=== PATIENT | female | born 1995 | race African-American/Black ===

== ENCOUNTER 2018-02-09 17:42 | Emergency (ER) | payer OTHER ==
[~2018-02-09] VITALS: Ht 160 cm; Wt 74.8 kg
[2018-02-09 18:16] LABS: ABSOLUTE EOSINOPHILS 0.1 thou/uL (0.0-0.7); ABSOLUTE LYMPHOCYTES 2.4 thou/uL (0.8-5.3); ABSOLUTE MONOCYTES 0.4 thou/uL (0.0-1.2); ABSOLUTE NEUTROPHILS 7.5 thou/uL (1.6-8.1); BASOPHILS 0.4 %; EOSINOPHILS 0.7 %; HEMATOCRIT 42.9 % (37.0-47.0); HEMOGLOBIN 14.4 gm/dL (12.0-15.0); LYMPHOCYTES 23.1 %; MCH 29.2 pg (26.0-34.0); MCHC 33.5 g/dL (28.0-37.0); MCV 87.2 fL (80.0-100.0); MONOCYTES 3.9 %; MPV 9.5 fl. (7.2-11.1); NUCLEATED RBCS 0 /100WBC; PLATELET COUNT* 229 thou/uL (150-400); POLYS 71.9 %; RBC 4.92 mil/uL (4.20-5.00); RDW-CV 12.9 % (10.5-14.5); WBC 10.5 thou/uL (4.0-11.0)
[2018-02-09 18:25] LABS: CALCIUM 8.9 mg/dL (8.5-10.1); CREATININE 0.8 mg/dL (0.6-1.3); POTASSIUM 3.6 mmol/L (3.5-5.1)
[2018-02-09 18:29] LABS: ALBUMIN 3.9 g/dL (3.4-5.0); TOTAL BILIRUBIN 0.5 mg/dL (<0.1-1.0); TOTAL PROTEIN 8.1 g/dL (6.4-8.2)
[2018-02-09 18:37] LABS: URINE BLOOD NEGATIVE (Negative); URINE CLARITY SL CLOUDY; URINE COLOR YELLOW; URINE GLUCOSE-RANDOM NEGATIVE (Negative); URINE NITRITE-REFLEX NEGATIVE (Negative); URINE PROTEIN 1+ (Negative)
[2018-02-09 18:41] LABS: ICTOTEST (BILI CONFIRMATORY) Negative (Negative); URINE BILIRUBIN 1+ (Negative); URINE KETONES 3+ (Negative); URINE LEUKOCYTES-REFLEX 3+ (Negative)
[2018-02-09 18:45] LABS: CASTS None Seen /LPF (None Seen); CRYSTALS None Seen /LPF (None Seen); MUCUS 4-6 Moderate strn/LPF (None Seen); SQUAMOUS >10 Many /LPF (0-3); URINE RBC None Seen /HPF (0-2)
[2018-02-09 18:46] LABS: BACTERIA-REFLEX >30 Many /HPF (None Seen)
[2018-02-09] MEDS ORDERED: BACTRIM DS TAB1 EACH PO (19:04)
[2018-02-09 19:41] VITALS: BP 127/76
== END 2018-02-09 19:43 | disposition home or self-care (01) ==
LOC: M.ERS 17:42
PROVIDERS: Nurse Practitioner Family
DX: N39.0 Urinary tract infection, site not specified (principal); J45.909 Unspecified asthma, uncomplicated